=== PATIENT | male | born 1970 | race Hispanic/Latino ===

== ENCOUNTER 2017-06-04 14:31 | Emergency (ER) | payer MEDICARE, OTHER ==
[2017-06-04 14:32] VITALS: BMI 25.1
[2017-06-04 14:47] VITALS: BP 131/75; PULSE 75; RESP 16; TEMP 97.5; O2SAT 99
--- NOTE | 2017-06-04 15:36 | ED PDOC ---
HPI: General Adult Time Seen by Provider: 06/04/17 14:52 Chief Complaint (Nursing): Lower Extremity Problem/Injury Chief Complaint (Provider): bilateral knee pain, fall History Per: Patient History/Exam Limitations: no limitations Onset/Duration Of Symptoms: Days (x1) Current Symptoms Are (Timing): Still Present Additional Complaint(s): 46 year old male presents to the emergency department for evaluation of bilateral knee injuries sustained today. Patient states he fell while walking this morning, breaking the fall with his knees. There was no loss of consciousness or head injury. He sustained abrasions to both knees and has developed progressively increasing swelling and pain to the left knee. Patient has been using a cane to ambulate today, which he briefly used in the past following a surgery. He complains it has become increasingly difficult to bear weight on the left knee. He states right knee does not hurt as much as left. PMD: Kimmy Baeza Past Medical History Reviewed: Historical Data, Nursing Documentation, Vital Signs Vital Signs: Last Vital Signs Temp 97.5 F L 06/04/17 14:46 Pulse 75 06/04/17 14:46 Resp 16 06/04/17 14:46 BP 131/75 06/04/17 14:46 Pulse Ox 99 06/04/17 15:45 - Medical History PMH: Anemia, Anxiety, Depression, Multiple Sclerosis - Surgical History Other surgeries: Right great toe amputation - Family History Family History: States: Unknown Family Hx - Living Arrangements Living Arrangements: With Friends/Others - Social History Current smoker - smoking cessation education provided: No Alcohol: None Drugs: Denies - Immunization History Hx Tetanus Toxoid Vaccination: Yes - Home Medications Home Medications: Ambulatory Orders Medication Instructions Recorded Enoxaparin [Lovenox] 40 mg SC DAILY #0 syr 07/10/14 Ibuprofen [Motrin Tab] 400 mg PO PRN PRN #0 tab 07/10/14 Pantoprazole [Protonix EC Tab] 40 mg PO DAILY #0 ect 07/10/14 Piperacillin/Tazobact [Zosyn] 3.375 gm IVPB Q8H #0 vial 07/10/14 Vancomycin 1 GM [Vancomycin 1GM in 1 gm IVPB DAILY #0 bag 07/10/14 Normal Saline Addvantage] Zinc Sulfate [Zinc] 220 mg PO DAILY #0 ter 07/10/14 mg Sulf/Vit B Complex/Vit C/ 1 tab PO DAILY #0 tab 07/10/14 [Vitab-C] Ibuprofen [Motrin Tab] 800 mg PO Q8 PRN #20 tab 06/04/17 - Allergies Allergies/Adverse Reactions: Allergies Allergy/AdvReac Type Severity Reaction Status Date / Time azithromycin Allergy URTICARIA Verified 06/04/17 14:46 Review of Systems ROS Statement: Except As Marked, All Systems Reviewed And Found Negative Musculoskeletal: Positive for: Other (Bilateral knee pain and abrasions; pain worse on left vs right knee) Neurological: Positive for: Other (denies head injury or LOC) Physical Exam - Reviewed Nursing Documentation Reviewed: Yes Vital Signs Reviewed: Yes - Physical Exam Appears: Positive for: Well, Non-toxic, No Acute Distress Head Exam: Positive for: ATRAUMATIC, NORMAL INSPECTION, NORMOCEPHALIC Skin: Positive for: Normal Color. Negative for: Rash Eye Exam: Positive for: Normal appearance Extremity: Positive for: Other (Swelling and abrasions noted to left patellar region, with full ROM of left knee. Right knee with abrasions, no swelling or tenderness, full ROM of right knee) Neurologic/Psych: Positive for: Alert, Oriented - ECG O2 Sat by Pulse Oximetry: 99 (RA) Pulse Ox Interpretation: Normal - Other Rad Left knee x-ray X-Ray: Interpreted by Me, Viewed By Me X-Ray Interpretation: nondisplaced patellar fracture Right knee x-ray X-Ray: Interpreted by Me, Viewed By Me X-Ray Interpretation: no fx, no dis Medical Decision Making Medical Decision Making: Initial Impression: 46 year old with knee injuries Time: 14:41 Plan: Motrin 600 mg PO X-ray of bilateral knees Patient is aware of x-ray results, all questions answered. Patient declined crutches. He states he has a walker at home. Case was discussed with Dr. Munoz, orthopedist shift production associate. He states to apply knee immobilizer and have patient follow-up in office. Patient given prescription for Motrin. Scribe Attestation: Documented by Imelda Sullivan, acting as a scribe for Corinne Ng PA-C Provider Scribe Attestation: All medical record entries made by the Scribe were at my direction and personally dictated by me. I have reviewed the chart and agree that the record accurately reflects my personal performance of the history, physical exam, medical decision making, and the department course for this patient. I have also personally directed, reviewed, and agree with the discharge instructions and disposition. Procedures - Splinting Location: right knee Pre-Made Type: knee immobilizer Pre-Proc Neuro Vasc Exam: normal Post-Proc Neuro Vasc Exam: normal Disposition - Clinical Impression Clinical Impression: Right patella fracture, Knee sprain - Patient ED Disposition Is Patient to be Admitted: No Counseled Patient/Family Regarding: Studies Performed, Diagnosis, Need For Followup, Rx Given - Disposition Referrals: Jennifer Munoz MD [Staff Provider] - Disposition: Routine/Home Disposition Time: 18:11 Condition: STABLE Additional Instructions: Ice, rest and elevate affected area. Take rx meds as directed as needed for pain. Follow up with orthopedist in 2-3 days. Prescriptions: Ibuprofen [Motrin Tab] 800 mg PO Q8 PRN #20 tab PRN Reason: Pain, Moderate (4-7) Instructions: Patella Fracture (DC), Knee Sprain (DC), Knee Immobilizer (DC) Forms: [employer] (Urdu)
--- NOTE | 2017-06-05 07:36 | RAD ---
PROCEDURE: Bilateral Knee Radiographs. HISTORY: fall COMPARISON: Right knee radiographs 04/14/2014 and left knee radiographs 04/01/2014. FINDINGS: There is an articular fracture along the left patella. No additional fracture or dislocation. There is no subluxation either. No destructive bony lesions identified although bone infarcts or enchondromata are identified at the right distal femoral metaphysis and epiphysis. Bone infarctions are favored given the location of these findings. None are seen at the left. These findings are stable compared to prior right knee radiographs dated 04/14/2014. Trace suprapatellar bursa effusion is appreciate the left which appears dense and may indicate hemarthrosis given fracture noted above. Limited prepatellar soft tissue edema is seen at the left with none on the right. No right bursal effusion. OTHER FINDINGS: None. IMPRESSION: Nondisplaced articular fracture left patella. No dislocation. No acute findings right knee. 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 PA review assigned.
== END 2017-06-04 19:15 | disposition home or self-care (01) ==
LOC: H.ER 14:31
DX: S82.002A Unspecified fracture of left patella, initial encounter for closed fracture (principal); W18.30XA Fall on same level, unspecified, initial encounter; Y92.89 Other specified places as the place of occurrence of the external cause
CPT/HCPCS: 29530; 73562; 99283; L1830